=== PATIENT | male | born 1940 | race Two or more races ===

== ENCOUNTER 2017-05-16 13:30 | Inpatient (IN) | payer MEDICARE ==
[~2017-05-16] VITALS: Ht 162.6 cm; Wt 83.0 kg
[2017-05-16 15:06] VITALS: BP 126/65; PULSE 89; RESP 18
[2017-05-16 15:30] LABS: ADD UMIC YES; UR ASCORBIC ACID 40 mg/dL (NEGATIVE); UR BACTERIA FEW /HPF (NONE SEEN); UR BILIRUBIN (Dip) NEGATIVE (NEGATIVE); UR BLOOD (Dip) 2+ mg/dL (NEGATIVE); UR CLARITY CLEAR (CLEAR); UR COLOR YELLOW (YELLOW); UR GLUCOSE (Dip) NEGATIVE (NEGATIVE); UR KETONES (Dip) NEGATIVE (NEGATIVE); UR LEUKOCYTE ESTERASE (Dip) NEGATIVE Leu/ul (NEGATIVE); UR NITRITE (Dip) NEGATIVE (NEGATIVE); UR RBC 2 /HPF (0-5); UR TOTAL PROTEIN (Dip) NEGATIVE (NEGATIVE); UR UROBILINOGEN (Dip) NEGATIVE (NEGATIVE)
[2017-05-16] MEDS ORDERED: MAGNESIUM HYDROXIDE 30ML CUP PO PRN (16:00)
[2017-05-16] MEDS ORDERED: BISACODYL 10 MG SUPP PR PRN (16:00)
[2017-05-16] MEDS ORDERED: ACETAMINOPHEN 325 MG TAB PO PRN (16:00)
[2017-05-16] MEDS ORDERED: OXYCODONE/ACETAMINOPHEN (5/325) TAB PO PRN (16:00)
[2017-05-16] MEDS ORDERED: ALBUTEROL 0.083% (NEB) 2.5 MG/3 ML AMP INH PRN (16:00)
[2017-05-16] MEDS ORDERED: LACTULOSE 30ML CUP PO PRN (16:00)
[2017-05-16] MEDS ORDERED: IPRATROPIUM (NEB) 0.5 MG/2.5 ML AMP INH PRN (16:00)
[2017-05-16] MEDS ORDERED: VALSARTAN 160 MG TAB PO SCH (17:00)
[2017-05-16] MEDS: DORZOLAMIDE/TIMOLOL 10 ML OPH BOTH EYES SCH (17:00)
[2017-05-16 17:45] VITALS: Ht 162.6 cm; Wt 83.0 kg
[2017-05-16] MEDS: AMLODIPINE 2.5 MG TAB PO SCH (18:48)
[2017-05-16] MEDS: VALSARTAN 160 MG TAB PO SCH (18:51)
[2017-05-16] MEDS ORDERED: INFLUENZA VIRUS VACCINE 0.5 ML (DISPENSING) IM* ONE (19:30)
[2017-05-16 20:00] VITALS: BP 127/62; RESP 18
[2017-05-16] MEDS: LATANOPROST 0.005% 2.5 ML OPH BOTH EYES SCH (20:24)
[2017-05-16] MEDS: DOCUSATE SODIUM 100 MG CAP PO SCH (20:25)
[2017-05-16] MEDS: FAMOTIDINE 20 MG TAB PO SCH (20:25)
[2017-05-16] MEDS: ASPIRIN 325 MG TAB PO SCH (20:25)
[2017-05-16] MEDS: TAMSULOSIN (SR) 0.4 MG CAP PO SCH (20:26)
[2017-05-16] MEDS: SENNA TAB PO SCH (20:27)
[2017-05-17 02:00] VITALS: BP 125/65; RESP 18
--- NOTE | 2017-05-17 03:01 | HP ---
DATE OF ADMISSION: 05/16/2017 CHIEF COMPLAINT: Status post total left knee arthroplasty. HISTORY OF PRESENT ILLNESS: This is a 76-year-old male with a past medical history of coronary irasema ry disease, hypertension, who was admitted to an outside hospital and underwent total left knee arth roplasty by Dr. Diaz. The patient has had chronic left knee pain that has failed conservative thera py as he underwent elective surgery. Following the surgery, the patient became acutely overloaded i n CHF. He was treated medically with diuretic therapy. Patient was eventually stabilized. However , he had a significant decline in his premorbid state and as a result he was transferred to [facility] to acute rehab for continued care. Upon my evaluation of the patient at this time, he is currently stable. Denies any fevers, chills, nausea, vomiting. PAST MEDICAL HISTORY: History of hypertension, coronary artery disease, osteoarthritis, gout. PAST SURGICAL HISTORY: Status post hernia repair, appendectomy. FAMILY HISTORY: Noncontributory. SOCIAL HISTORY: Does not drink, smoke or do drugs. MEDICATIONS: Reviewed and reconciled. REVIEW OF SYSTEMS: A 14-point review of systems was conducted. Pertinent positives stated in HPI, otherwise negative. PHYSICAL EXAMINATION: VITAL SIGNS: Blood pressure is 126/65, respiration 18, pulse 89, temperature 98.4. HEENT: Head is normocephalic. NECK: Supple. HEART: Regular rate. LUNGS: Show diminished breath sounds at the base. ABDOMEN: Soft, nontender to palpation. No rebound or guarding. EXTREMITIES: Negative for clubbing, cyanosis, no edema on the right leg. Left leg has a dressing a nd brace that is clean, dry and intact. DERMATOLOGIC: No rashes. MUSCULOSKELETAL: No joint effusions. NEUROLOGIC: No focal deficits. MEDICATIONS: The patient's medications have been reviewed. LABORATORY DATA: Currently pending. ASSESSMENT AND PLAN: This is a 76-year-old male who presents with: 1. Status post total left knee arthroplasty. The plan is for patient to undergo physical therapy, occupational therapy, continue pain control. Continue deep venous thrombosis prophylaxis with aspir in. 2. Hypertension. Continue current blood pressure regimen, well controlled. 3. History of gout. Continue allopurinol. 4. Glaucoma. Continue eyedrops. 5. Pain syndrome. Continue current pain regimen. 6. Benign prostatic hypertrophy. Continue Flomax. 7. Status post heart failure. 8. Gastrointestinal and deep venous thrombosis prophylaxis. Continue Pepcid and aspirin. Please note I spent up to 25 minutes of face to face time with the patient and patient is FULL CODE. Dictated By: JUANITA ALDRIDGE DO NR/DAO Conf#: [id number] DID#: [id number] CC: LEELA ROSENTHAL DO; JUANITA ALDRIDGE DO;*EndCC*
[2017-05-17 06:59] LABS: BASOPHILS % 0.4 % (0.0-2.0); EOSINOPHILS # 0.3 10^3/ul (0.0-0.5); EOSINOPHILS % 2.7 % (0.0-7.0); HEMATOCRIT 34.5 % (42.0-52.0); HEMOGLOBIN 11.7 g/dl (14.0-18.0); LYMPHOCYTES # 1.3 10^3/ul (0.8-2.9); LYMPHOCYTES % 13.6 % (15.0-51.0); MEAN CORPUSCULAR HEMOGLOBIN 33.1 pg (29.0-33.0); MEAN CORPUSCULAR HGB CONC 33.9 g/dl (32.0-37.0); MEAN CORPUSCULAR VOLUME 97.7 fl (82.0-101.0); MONOCYTE # 1.3 10^3/ul (0.3-0.9); MONOCYTES % 13.7 % (0.0-11.0); NEUTROPHIL # 6.6 10^3/ul (1.6-7.5); NEUTROPHILS % 68.2 % (39.0-77.0); PLATELET COUNT 203 10^3/UL (140-415); RED BLOOD COUNT 3.53 10^6/ul (4.70-6.10); RED CELL DISTRIBUTION WIDTH 13.5 % (11.5-14.5); WHITE BLOOD COUNT 9.6 10^3/ul (4.8-10.8)
[2017-05-17 07:30] VITALS: BP 139/70; RESP 20
[2017-05-17 07:33] LABS: ALBUMIN/GLOBULIN RATIO 0.83; BILIRUBIN,INDIRECT 0.6 mg/dl (0-1.1); BILIRUBIN,TOTAL 0.6 mg/dl (0.2-1.3); CALCIUM 8.6 mg/dl (8.4-10.2); CREATININE 1.2 mg/dl (0.61-1.24); POTASSIUM 3.9 mmol/L (3.5-5.1); TOTAL PROTEIN 6.6 g/dl (6.1-8.1)
--- NOTE | 2017-05-17 08:48 | CONS ---
DATE OF ADMISSION: 05/16/2017 DATE OF CONSULTATION: 05/17/2017 TYPE OF CONSULTATION: Rehabilitation post-admission physician evaluation. REHABILITATION IMPAIRMENT CATEGORY: Debility secondary to postoperative acute on chronic diastolic failure. ACTIVE COMORBIDITIES: 1. Left total knee replacement. 2. Coronary artery disease. 3. Hypertension. 4. COPD. 5. Acute pain syndrome. 6. Impairments in self-care and mobility. HISTORY OF PRESENT ILLNESS: The patient is a pleasant 76-year-old gentleman who was admitted for a left total knee replacement. The patient's postoperative course was notable for acute on chronic diastolic failure. The patient was noted to have significant impairments in self-care and mobility as compared to baseline and the patient has been cleared to transfer to the rehabilitation unit for comprehensive interdisciplinary rehab care. FUNCTIONAL HISTORY: Prior to recent events, he was independent in self-care tasks and mobility. Currently, he requires minimal to moderate assist for self- care and mobility tasks. I have reviewed the preadmission screen and the patient's current functional status is consistent with the preadmission screen. SOCIAL HISTORY: The patient lives at home with family with a few steps at entryway and hopes to return there upon discharge. PAST MEDICAL HISTORY: 1. COPD. 2. Gout. 3. Osteoarthritis. 4. Hypertension. 5. Coronary artery disease. CURRENT MEDICATIONS: 1. Albuterol inhaler. 2. Amlodipine. 3. Catapres. 4. Atrovent inhaler. 5. Flomax. 6. Allopurinol. ALLERGIES: THE PATIENT WITH NO KNOWN DRUG ALLERGIES. PHYSICAL EXAMINATION: VITAL SIGNS: The patient is afebrile with stable vital signs. HEENT: Extraocular motion intact. Oropharynx clear. NECK: Supple. LUNGS: Clear anteriorly. CARDIAC: S1, S2. ABDOMEN: Soft, nontender, positive bowel sounds. NEUROLOGIC: He is awake and alert and oriented x3. He can follow simple 1- step commands. His cranial nerves appear grossly intact. He has good strength in bilateral upper extremity and the right lower extremity. Dorsiflexion and plantar flexion intact on the left. PLAN: The patient has been admitted for comprehensive interdisciplinary acute rehab and is anticipated to tolerate 5 out of 7 days a week, 3 hours of daily therapy in divided doses. The treatment plan will include: 1. Physical therapy to focus on bed mobility, transfers, and household ambulation with the goal of having the patient reach a standby assist level. 2. Occupational therapy to focus on hygiene, grooming, dressing, bathing, and toileting activities with the goal of having the patient reach standby assist level. 3. Rehabilitation nursing for carryover of therapeutic interventions, the goal of continent of bowel and bladder, and the goal of pain adequately managed on oral medications. ESTIMATED LENGTH OF STAY: seven days. DISPOSITION GOAL: Home. REHABILITATION BARRIER: Pain. INTERVENTION FOR BARRIER: Interdisciplinary approach. I acknowledge that I performed a full physical examination on this patient within 24 hours of admission to the rehabilitation unit. I believe the patient is a good candidate for comprehensive interdisciplinary rehab care and is anticipated to make reasonable goals in a reasonable period of time as outlined above. Dictated By: CHESTER MCDONALD/DAO Conf#: [id number] DID#: [id number] MTDD
[2017-05-17] MEDS: ALLOPURINOL 300 MG TAB PO SCH (09:00)
[2017-05-17] MEDS ORDERED: VALSARTAN 160 MG TAB PO SCH (09:00)
[2017-05-17] MEDS: ASPIRIN 325 MG TAB PO SCH ×2 (10:22→20:20)
[2017-05-17] MEDS: FAMOTIDINE 20 MG TAB PO SCH ×2 (10:22→20:20)
[2017-05-17] MEDS: DOCUSATE SODIUM 100 MG CAP PO SCH ×2 (10:22→20:20)
[2017-05-17] MEDS: CHOLECALCIFEROL 2,000 UNIT CAP PO SCH (10:22)
[2017-05-17] MEDS: DORZOLAMIDE/TIMOLOL 10 ML OPH BOTH EYES SCH ×2 (10:22→16:38)
--- NOTE | 2017-05-17 10:58 | CONS ---
Date/Time of Note Date/Time of Note DATE: 05/17/17 TIME: 10:57 Consult Date/Type/Reason Admit Date/Time May 16, 2017 at 14:15 Initial Consult Date Subjective no new c/o good uop on pt HEENT: Head is normocephalic. NECK: Supple. HEART: Regular rate. LUNGS: Show diminished breath sounds at the base. ABDOMEN: Soft, nontender to palpation. No rebound or guarding. EXTREMITIES: Negative for clubbing, cyanosis, no edema on the right leg. Left leg has a dressing and brace that is clean, dry and intact. DERMATOLOGIC: No rashes. MUSCULOSKELETAL: No joint effusions. NEUROLOGIC: No focal deficits. Objective Vital Signs Date Time Temp Pulse Resp B/P Pulse Ox O2 Delivery O2 Flow Rate FiO2 05/17/17 07:30 97.8 98 20 139/70 97 05/16/17 15:06 Room Air Intake and Output 05/16/17 05/16/17 05/17/17 15:00 23:00 07:00 Intake Total 650 ml Output Total 1100 ml Balance -450 ml Results/Medications Result Diagram: 05/17/17 0609 05/17/17 0609 Results 24 hrs Laboratory Tests Test 05/16/17 14:24 05/17/17 06:09 Urine Color YELLOW Urine Clarity CLEAR Urine pH 5.0 Urine Specific [place] 1.010 Urine Ketones NEGATIVE Urine Nitrite NEGATIVE Urine Bilirubin NEGATIVE Urine Urobilinogen NEGATIVE Urine Leukocyte Esterase NEGATIVE Urine Microscopic RBC 2 Urine Microscopic WBC 1 Urine Bacteria FEW A Urine Hemoglobin 2+ H Urine Glucose NEGATIVE Urine Total Protein NEGATIVE White Blood Count 9.6 Red Blood Count 3.53 L Hemoglobin 11.7 L Hematocrit 34.5 L Mean Corpuscular Volume 97.7 Mean Corpuscular Hemoglobin 33.1 H Mean Corpuscular Hemoglobin Concent 33.9 Red Cell Distribution Width 13.5 Platelet Count 203 Mean Platelet Volume 10.0 Neutrophils % 68.2 Lymphocytes % 13.6 L Monocytes % 13.7 H Eosinophils % 2.7 Basophils % 0.4 Nucleated Red Blood Cells % 0.0 Neutrophils # 6.6 Lymphocytes # 1.3 Monocytes # 1.3 H Eosinophils # 0.3 Basophils # 0.0 Nucleated Red Blood Cells # 0.0 Sodium Level 141 Potassium Level 3.9 Chloride Level 103 Carbon Dioxide Level 29 Anion Gap 13 Blood Urea Nitrogen 19 Creatinine 1.20 Glucose Level 117 Calcium Level 8.6 Total Bilirubin 0.6 Direct Bilirubin 0.00 Indirect Bilirubin 0.6 Aspartate Amino Transf (AST/SGOT) 26 Alanine Aminotransferase (ALT/SGPT) 33 Alkaline Phosphatase 61 Total Protein 6.6 Albumin 3.0 L Globulin 3.60 H Albumin/Globulin Ratio 0.83 Medications Current Medications Dorzolamide/ Timolol (Cosopt) 1 drop BID@, BOTH EYES Last administered on 05/17/17 10:22; Admin Dose 1 DROP; Start 05/16/17 at 17:00 Latanoprost (Xalatan) 1 drop HS BOTH EYES Last administered on 05/16/17 20:24 ; Admin Dose 1 DROP; Start 05/16/17 at 21:00 Docusate Sodium (Colace) 100 mg BID PO Last administered on 05/17/17 10:22; Admin Dose 100 MG; Start 05/16/17 at 21:00 Senna (Senokot) 1 tab HS PO ; Start 05/16/17 at 21:00 Acetaminophen (Tylenol Tab) 650 mg Q4H PRN PO PAIN; Start 05/16/17 at 16:00 Bisacodyl (Dulcolax Supp) 10 mg DAILY PRN [place] CONSTIPATION; Start 05/16/17 at 16 :00 Magnesium Hydroxide (Milk Of Mag) 30 ml BID PRN PO CONSTIPATION; Start at 16:00 Lactulose (Enulose) 20 gm DAILY PRN PO CONSTIPATION; Start 05/16/17 at 16:00 Amlodipine Besylate (Norvasc) 2.5 mg DAILY@17 PO Last administered on 18:48; Admin Dose 2.5 MG; Start 05/16/17 at 17:00 Aspirin (Aspirin) 325 mg BID PO Last administered on 05/17/17 10:22; Admin Dose 325 MG; Start 05/16/17 at 21:00 Cholecalciferol (Vitamin D) 2,000 unit DAILY PO Last administered on 05/17/17 10:22; Admin Dose 2,000 UNIT; Start 05/17/17 at 09:00 Clonidine (Catapres) 0.1 mg Q8H PRN PO SBP GREATER THAN 170; Start 05/16/17 at 16:00 Tamsulosin HCl (Flomax) 0.4 mg DAILY@21 PO ; Start 05/16/17 at 21:00 Allopurinol (Zyloprim) 300 mg DAILY PO ; Start 05/17/17 at 09:00 Oxycodone/ Acetaminophen (Percocet (5/ 325)) 1 tab QID PRN PO PAIN; Start 05/16 at 16:00 Valsartan (Diovan) 320 mg DAILY@17 PO Last administered on 05/16/17 18:51; Admin Dose 320 MG; Start 05/16/17 at 17:00 Famotidine (Pepcid) 20 mg BID PO Last administered on 05/17/17t 10:22; Admin Dose 20 MG; Start 05/16/17 at 21:00 Assessment/Plan Chief Complaint/Hosp Course 1. Status post total left knee arthroplasty. The plan is for patient to undergo physical therapy, occupational therapy, continue pain control. Continue deep venous thrombosis prophylaxis with aspirin. 2. Hypertension. Continue current blood pressure regimen, well controlled. 3. History of gout. Continue allopurinol. 4. Glaucoma. Continue eyedrops. 5. Pain syndrome. Continue current pain regimen. 6. Benign prostatic hypertrophy. Continue Flomax. 7. Status post heart failure. 8. Gastrointestinal and deep venous thrombosis prophylaxis. Continue Pepcid and aspirin. Problems: JAY HAYES MD May 17, 2017 10:58
[2017-05-17 14:00] VITALS: BP 130/71; RESP 18
[2017-05-17] MEDS: VALSARTAN 160 MG TAB PO SCH (16:37)
[2017-05-17] MEDS: AMLODIPINE 2.5 MG TAB PO SCH (16:37)
[2017-05-17 20:00] VITALS: BP 121/65; RESP 18
[2017-05-17] MEDS: LATANOPROST 0.005% 2.5 ML OPH BOTH EYES SCH (20:20)
[2017-05-17] MEDS: SENNA TAB PO SCH (20:25)
[2017-05-17] MEDS: TAMSULOSIN (SR) 0.4 MG CAP PO SCH (20:25)
[2017-05-18 02:00] VITALS: BP 126/67; RESP 18
[2017-05-18 07:00] VITALS: BP 131/78; RESP 18
[2017-05-18] MEDS: ALLOPURINOL 300 MG TAB PO SCH (09:00)
[2017-05-18] MEDS: DORZOLAMIDE/TIMOLOL 10 ML OPH BOTH EYES SCH ×2 (09:20→17:27)
[2017-05-18] MEDS: ASPIRIN 325 MG TAB PO SCH ×2 (09:20→21:06)
[2017-05-18] MEDS: CHOLECALCIFEROL 2,000 UNIT CAP PO SCH (09:23)
[2017-05-18] MEDS: FAMOTIDINE 20 MG TAB PO SCH ×2 (09:23→21:06)
[2017-05-18] MEDS: DOCUSATE SODIUM 100 MG CAP PO SCH ×2 (09:23→21:06)
--- NOTE | 2017-05-18 09:37 | CONS ---
Date/Time of Note Date/Time of Note DATE: 05/18/17 TIME: 09:37 Consult Date/Type/Reason Admit Date/Time May 16, 2017 at 14:15 Subjective no new events good uop on PT Objective Vital Signs Date Time Temp Pulse Resp B/P Pulse Ox O2 Delivery O2 Flow Rate FiO2 05/18/17 02:00 98.3 82 18 126/67 95 05/16/17 15:06 Room Air Intake and Output 05/17/17 05/17/17 05/18/17 15:00 23:00 07:00 Intake Total 750 ml 1300 ml 1050 ml Output Total 840 ml 350 ml Balance 750 ml 460 ml 700 ml Exam EENT: Extraocular motion intact. Oropharynx clear. NECK: Supple. LUNGS: Clear anteriorly. CARDIAC: S1, S2. ABDOMEN: Soft, nontender, positive bowel sounds. Results/Medications Result Diagram: 05/17/17 0609 05/17/17 0609 Medications Current Medications Dorzolamide/ Timolol (Cosopt) 1 drop BID@ BOTH EYES Last administered on 05/18/17 09:20; Admin Dose 1 DROP; Start 05/16/17 at 17:00 Latanoprost (Xalatan) 1 drop HS BOTH EYES Last administered on 05/17/17 20:20 ; Admin Dose 1 DROP; Start 05/16/17 at 21:00 Docusate Sodium (Colace) 100 mg BID PO Last administered on 05/18/17 09:23; Admin Dose 100 MG; Start 05/16/17 at 21:00 Senna (Senokot) 1 tab HS PO ; Start 05/16/17 at 21:00 Acetaminophen (Tylenol Tab) 650 mg Q4H PRN PO PAIN; Start 05/16/17 at 16:00 Bisacodyl (Dulcolax Supp) 10 mg DAILY PRN [place] CONSTIPATION; Start 05/16/17 at 16 :00 Magnesium Hydroxide (Milk Of Mag) 30 ml BID PRN PO CONSTIPATION; Start at 16:00 Lactulose (Enulose) 20 gm DAILY PRN PO CONSTIPATION; Start 05/16/17 at 16:00 Amlodipine Besylate (Norvasc) 2.5 mg DAILY@17 PO Last administered on 16:37; Admin Dose 2.5 MG; Start 05/16/17 at 17:00 Aspirin (Aspirin) 325 mg BID PO Last administered on 05/18/17 09:20; Admin Dose 325 MG; Start 05/16/17 at 21:00 Cholecalciferol (Vitamin D) 2,000 unit DAILY PO Last administered on 09:23; Admin Dose 2,000 UNIT; Start 05/17/17 at 09:00 Clonidine (Catapres) 0.1 mg Q8H PRN PO SBP GREATER THAN 170; Start 05/16/17 at 16:00 Tamsulosin HCl (Flomax) 0.4 mg DAILY@21 PO ; Start 05/16/17 at 21:00 Allopurinol (Zyloprim) 300 mg DAILY PO ; Start 05/17/17 at 09:00 Oxycodone/ Acetaminophen (Percocet (5/ 325)) 1 tab QID PRN PO PAIN; Start 05/16 at 16:00 Valsartan (Diovan) 320 mg DAILY@17 PO Last administered on 05/17/17 16:37; Admin Dose 320 MG; Start 05/16/17 at 17:00 Famotidine (Pepcid) 20 mg BID PO Last administered on 05/18/17 09:23; Admin Dose 20 MG; Start 05/16/17 at 21:00 Assessment/Plan Chief Complaint/Hosp Course 1. Status post total left knee arthroplasty. The plan is for patient to undergo physical therapy, occupational therapy, continue pain control. Continue deep venous thrombosis prophylaxis with aspirin. 2. Hypertension. Continue current blood pressure regimen, well controlled. 3. History of gout. Continue allopurinol. 4. Glaucoma. Continue eyedrops. 5. Pain syndrome. Continue current pain regimen. 6. Benign prostatic hypertrophy. Continue Flomax. 7. Status post heart failure. 8. Gastrointestinal and deep venous thrombosis prophylaxis. Continue Pepcid and aspirin. Problems: JAY HAYES MD May 18, 2017 09:37
[2017-05-18 15:24] VITALS: BP 118/55; RESP 18
[2017-05-18] MEDS: VALSARTAN 160 MG TAB PO SCH (17:27)
[2017-05-18] MEDS: AMLODIPINE 2.5 MG TAB PO SCH (17:28)
[2017-05-18 20:00] VITALS: BP 125/64; RESP 18
[2017-05-18] MEDS: SENNA TAB PO SCH (21:00)
[2017-05-18] MEDS: TAMSULOSIN (SR) 0.4 MG CAP PO SCH (21:00)
[2017-05-18] MEDS: LATANOPROST 0.005% 2.5 ML OPH BOTH EYES SCH (21:06)
[2017-05-19 02:00] VITALS: BP 124/63; RESP 18
[2017-05-19 07:00] VITALS: BP 119/61; RESP 18
[2017-05-19] MEDS: DOCUSATE SODIUM 100 MG CAP PO SCH ×2 (08:36→21:06)
[2017-05-19] MEDS: DORZOLAMIDE/TIMOLOL 10 ML OPH BOTH EYES SCH ×2 (08:36→17:05)
[2017-05-19] MEDS: FAMOTIDINE 20 MG TAB PO SCH ×2 (08:36→21:06)
[2017-05-19] MEDS: ASPIRIN 325 MG TAB PO SCH ×2 (08:36→21:05)
[2017-05-19] MEDS: CHOLECALCIFEROL 2,000 UNIT CAP PO SCH (08:36)
[2017-05-19] MEDS: ALLOPURINOL 300 MG TAB PO SCH (08:37)
--- NOTE | 2017-05-19 11:28 | PN ---
DATE: 05/19/2017 SUBJECTIVE: The patient is stable. No events overnight. OBJECTIVE: VITAL SIGNS: Blood pressure is 119/61, pulse 100, respiration 18, temperature 97.6. HEENT: Head is normocephalic. NECK: Supple. HEART: Regular rate. LUNGS: Show diminished breath sounds at base. ABDOMEN: Soft, nontender to palpation. No rebound or guarding. EXTREMITIES: Negative for clubbing, cyanosis, edema. DERMATOLOGIC: No rashes. MUSCULOSKELETAL: No joint effusions. NEUROLOGIC: No change in exam. MEDICATIONS: The patient's medications have been reviewed. LABORATORY DATA: Reviewed. No new labs. ASSESSMENT AND PLAN: 1. Status post left knee arthroplasty. The patient is currently stable. Continue physical therapy and occupational therapy, continue pain control. 2. Hypertension. Continue current blood pressure regimen. 3. History of gout. Continue allopurinol. 4. Glaucoma. Continue current eyedrops. 5. Chronic pain syndrome. Continue current pain regimen. 6. Benign prostatic hypertrophy. Continue Flomax. 7. Status post heart failure. 8. Gastrointestinal and deep venous thrombosis prophylaxis. Continue Pepcid and aspirin. Dictated By: JUANITA FLEMING/DAO Conf#: [id number] DID#: [id number]
--- NOTE | 2017-05-19 11:47 | CONS ---
Date/Time of Note Date/Time of Note DATE: 05/19/17 TIME: 11:47 Consult Date/Type/Reason Admit Date/Time May 16, 2017 at 14:15 Initial Consult Date Objective Vital Signs Date Time Temp Pulse Resp B/P Pulse Ox O2 Delivery O2 Flow Rate FiO2 05/19/17 07:00 97.6 100 18 119/61 96 05/16/17 15:06 Room Air Intake and Output 05/18/17 05/18/17 05/19/17 15:00 23:00 07:00 Intake Total 3200 ml 520 ml Output Total 1200 ml 2000 ml Balance 2000 ml -1480 ml INTERDISCIPLINARY TEAM CONFERENCE BOWEL- Cont BLADDER-Cont SKIN- intact OT- DRESSING-min BATHING-min TOILETING-min PT- BED MOBILITY-min TRANSFERS-min AMBULATION-min 75 feet A/P- Interdisciplinary team conference held today. Please see interdisciplinary sheet. Working toward d.c. on 05/23 with post discharge follow up of physical therapy, occupational therapy. Results/Medications Result Diagram: 05/17/17 0609 05/17/17 0609 Medications Current Medications Dorzolamide/ Timolol (Cosopt) 1 drop BID@ BOTH EYES Last administered on 05/19/17 08:36; Admin Dose 1 DROP; Start 05/16/17 at 17:00 Latanoprost (Xalatan) 1 drop HS BOTH EYES Last administered on 05/18/17 21:06 ; Admin Dose 1 DROP; Start 05/16/17 at 21:00 Docusate Sodium (Colace) 100 mg BID PO Last administered on 05/19/17 08:36; Admin Dose 100 MG; Start 05/16/17 at 21:00 Senna (Senokot) 1 tab HS PO ; Start 05/16/17 at 21:00 Acetaminophen (Tylenol Tab) 650 mg Q4H PRN PO PAIN; Start 05/16/17 at 16:00 Bisacodyl (Dulcolax Supp) 10 mg DAILY PRN [place] CONSTIPATION; Start 05/16/17 at 16 :00 Magnesium Hydroxide (Milk Of Mag) 30 ml BID PRN PO CONSTIPATION; Start at 16:00 Lactulose (Enulose) 20 gm DAILY PRN PO CONSTIPATION; Start 05/16/17 at 16:00 Amlodipine Besylate (Norvasc) 2.5 mg DAILY@17 PO Last administered on 17:28; Admin Dose 2.5 MG; Start 05/16/17 at 17:00 Aspirin (Aspirin) 325 mg BID PO Last administered on 05/19/17 08:36; Admin Dose 325 MG; Start 05/16/17 at 21:00 Cholecalciferol (Vitamin D) 2,000 unit DAILY PO Last administered on 08:36; Admin Dose 2,000 UNIT; Start 05/17/17 at 09:00 Clonidine (Catapres) 0.1 mg Q8H PRN PO SBP GREATER THAN 170; Start 05/16/17 at 16:00 Tamsulosin HCl (Flomax) 0.4 mg DAILY@21 PO ; Start 05/16/17 at 21:00 Allopurinol (Zyloprim) 300 mg DAILY PO ; Start 05/17/17 at 09:00 Oxycodone/ Acetaminophen (Percocet (5/ 325)) 1 tab QID PRN PO PAIN; Start 05/16 at 16:00 Valsartan (Diovan) 320 mg DAILY@17 PO Last administered on 05/18/17 17:27; Admin Dose 320 MG; Start 05/16/17 at 17:00 Famotidine (Pepcid) 20 mg BID PO Last administered on 05/19/17 08:36; Admin Dose 20 MG; Start 05/16/17 at 21:00 CHESTER GARZA MD May 19, 2017 11:47
[2017-05-19 14:00] VITALS: BP 111/66; RESP 18
[2017-05-19] MEDS: AMLODIPINE 2.5 MG TAB PO SCH (17:05)
[2017-05-19] MEDS: VALSARTAN 160 MG TAB PO SCH (17:05)
[2017-05-19 20:00] VITALS: BP 108/53; RESP 18
[2017-05-19] MEDS: SENNA TAB PO SCH (21:00)
[2017-05-19] MEDS: TAMSULOSIN (SR) 0.4 MG CAP PO SCH (21:00)
[2017-05-19] MEDS: LATANOPROST 0.005% 2.5 ML OPH BOTH EYES SCH (21:05)
[2017-05-20 02:00] VITALS: BP 114/65; RESP 18
[2017-05-20 07:30] VITALS: BP 116/66; RESP 20
[2017-05-20] MEDS: CHOLECALCIFEROL 2,000 UNIT CAP PO SCH (08:42)
[2017-05-20] MEDS: DOCUSATE SODIUM 100 MG CAP PO SCH ×2 (08:43→20:20)
[2017-05-20] MEDS: ASPIRIN 325 MG TAB PO SCH ×2 (08:43→20:20)
[2017-05-20] MEDS: DORZOLAMIDE/TIMOLOL 10 ML OPH BOTH EYES SCH ×2 (08:43→18:18)
[2017-05-20] MEDS: FAMOTIDINE 20 MG TAB PO SCH ×2 (08:43→20:20)
[2017-05-20] MEDS: ALLOPURINOL 300 MG TAB PO SCH (08:44)
--- NOTE | 2017-05-20 09:59 | CONS ---
Date/Time of Note Date/Time of Note DATE: 05/20/17 TIME: 09:58 Consult Date/Type/Reason Admit Date/Time May 16, 2017 at 14:15 Subjective "I feel great" Objective min assist ambulation Vital Signs Date Time Temp Pulse Resp B/P Pulse Ox O2 Delivery O2 Flow Rate FiO2 05/20/17 02:00 98.0 88 18 114/65 96 05/16/17 15:06 Room Air Intake and Output 05/19/17 05/19/17 05/20/17 15:00 23:00 07:00 Intake Total 200 ml 300 ml Output Total 1400 ml 1500 ml Balance -1200 ml -1200 ml Results/Medications Result Diagram: 05/17/17 0609 05/17/17 0609 Medications Current Medications Dorzolamide/ Timolol (Cosopt) 1 drop BID@ BOTH EYES Last administered on 05/20/17 08:43; Admin Dose 1 DROP; Start 05/16/17 at 17:00 Latanoprost (Xalatan) 1 drop HS BOTH EYES Last administered on 05/19/17 21:05 ; Admin Dose 1 DROP; Start 05/16/17 at 21:00 Docusate Sodium (Colace) 100 mg BID PO Last administered on 05/20/17 08:43; Admin Dose 100 MG; Start 05/16/17 at 21:00 Senna (Senokot) 1 tab HS PO ; Start 05/16/17 at 21:00 Acetaminophen (Tylenol Tab) 650 mg Q4H PRN PO PAIN; Start 05/16/17 at 16:00 Bisacodyl (Dulcolax Supp) 10 mg DAILY PRN [place] CONSTIPATION; Start 05/16/17 at 16 :00 Magnesium Hydroxide (Milk Of Mag) 30 ml BID PRN PO CONSTIPATION; Start at 16:00 Lactulose (Enulose) 20 gm DAILY PRN PO CONSTIPATION; Start 05/16/17 at 16:00 Amlodipine Besylate (Norvasc) 2.5 mg DAILY@17 PO Last administered on 17:05; Admin Dose 2.5 MG; Start 05/16/17 at 17:00 Aspirin (Aspirin) 325 mg BID PO Last administered on 05/20/17 08:43; Admin Dose 325 MG; Start 05/16/17 at 21:00 Cholecalciferol (Vitamin D) 2,000 unit DAILY PO Last administered on 08:42; Admin Dose 2,000 UNIT; Start 05/17/17 at 09:00 Clonidine (Catapres) 0.1 mg Q8H PRN PO SBP GREATER THAN 170; Start 05/16/17 at 16:00 Tamsulosin HCl (Flomax) 0.4 mg DAILY@21 PO ; Start 05/16/17 at 21:00 Allopurinol (Zyloprim) 300 mg DAILY PO ; Start 05/17/17 at 09:00 Oxycodone/ Acetaminophen (Percocet (5/ 325)) 1 tab QID PRN PO PAIN Last administered on 05/19/17 17:05; Admin Dose 1 TAB; Start 05/16/17 at 16:00 Valsartan (Diovan) 320 mg DAILY@17 PO Last administered on 05/19/17 17:05; Admin Dose 320 MG; Start 05/16/17 at 17:00 Famotidine (Pepcid) 20 mg BID PO Last administered on 05/20/17 08:43; Admin Dose 20 MG; Start 05/16/17 at 21:00 Assessment/Plan Additional Assessment/Plan Rehab- Debility secondary to postoperative acute on chronic diastolic failure; Left total knee replacement. Patient making progress with current treatment plan, working towards home at end of week Coronary artery disease. Hypertension. COPD. Acute pain syndrome- improving. CHESTER GARZA MD May 20, 2017 09:59
[2017-05-20 14:00] VITALS: BP 104/58; RESP 18
[2017-05-20] MEDS: VALSARTAN 160 MG TAB PO SCH (18:18)
[2017-05-20] MEDS: AMLODIPINE 2.5 MG TAB PO SCH (18:18)
[2017-05-20 20:00] VITALS: BP 102/61; RESP 18
[2017-05-20] MEDS: LATANOPROST 0.005% 2.5 ML OPH BOTH EYES SCH (20:20)
[2017-05-20] MEDS: TAMSULOSIN (SR) 0.4 MG CAP PO SCH (20:23)
[2017-05-20] MEDS: SENNA TAB PO SCH (20:24)
[2017-05-21 02:00] VITALS: BP 118/59; RESP 18
--- NOTE | 2017-05-21 06:34 | PN ---
DATE: 05/20/2017 SUBJECTIVE: The patient is stable. No events overnight. OBJECTIVE: VITAL SIGNS: Blood pressure is 119/61, pulse 100, respirations 18, temperature 98.0. HEENT: Head is normocephalic. NECK: Supple. HEART: Regular rate. LUNGS: Show diminished breath sounds at the base. ABDOMEN: Soft, nontender to palpation without rebound or guarding. EXTREMITIES: Negative for clubbing, cyanosis. No edema noted. Dressing on patient's left knee. DERMATOLOGIC: No rashes. MUSCULOSKELETAL: No joint effusions. MEDICATIONS: The patient's medications have been reviewed. LABORATORY DATA: Has been reviewed. No new labs. ASSESSMENT AND PLAN: 1. Status post left knee arthroplasty. The patient is currently stable. Continue physical therapy . 2. Hypertension. Continue current blood pressure regimen. 3. History of gout. Continue allopurinol. 4. Glaucoma. Continue eyedrops. 5. Chronic pain syndrome. Continue current pain regimen. 6. Benign prostatic hypertrophy. Continue Flomax. 7. Status post heart failure. 8. Gastrointestinal and deep venous thrombosis prophylaxis. Continue Pepcid and aspirin. Dictated By: JUANITA ALDRIDGE DO NR/NTS Conf#: [id number] DID#: [id number] CC: LEELA ROSENTHAL DO; CHESTER GARZA MD;*End*
[2017-05-21 08:00] VITALS: BP 110/60; RESP 19
[2017-05-21] MEDS: ALLOPURINOL 300 MG TAB PO SCH (09:00)
[2017-05-21] MEDS: DOCUSATE SODIUM 100 MG CAP PO SCH ×2 (09:10→20:24)
[2017-05-21] MEDS: CHOLECALCIFEROL 2,000 UNIT CAP PO SCH (09:10)
[2017-05-21] MEDS: FAMOTIDINE 20 MG TAB PO SCH ×2 (09:10→20:24)
[2017-05-21] MEDS: ASPIRIN 325 MG TAB PO SCH ×2 (09:10→20:24)
[2017-05-21] MEDS: DORZOLAMIDE/TIMOLOL 10 ML OPH BOTH EYES SCH ×2 (09:11→17:48)
--- NOTE | 2017-05-21 11:52 | PN ---
DATE: 05/21/2017 SUBJECTIVE: The patient is stable. No events overnight. OBJECTIVE: VITAL SIGNS: Blood pressure is 119/59, pulse 103, respirations 20, temperature 98.4. HEENT: Head is normocephalic. NECK: Supple. HEART: Regular rate. LUNGS: Show diminished breath sounds at base. ABDOMEN: Soft, nontender to palpation without rebound or guarding. EXTREMITIES: Negative for clubbing, cyanosis, no edema. Patient has a dressing over his left knee clean, dry and intact. DERMATOLOGIC: No rashes. MUSCULOSKELETAL: No joint effusions. NEUROLOGIC: No change in exam. MEDICATIONS: The patient's medications have been reviewed. LABORATORY DATA: Has been reviewed. ASSESSMENT AND PLAN: 1. Status post left knee arthroplasty. The patient is currently stable. Continue physical therapy . 2. Hypertension. Continue current blood pressure regimen. 3. History of gout. Continue allopurinol. 4. Glaucoma. Continue current eyedrops. 5. Chronic pain syndrome. Continue current pain regimen. 6. Benign prostatic hypertrophy. Continue Flomax. 7. Status post heart failure. 8. Gastrointestinal and deep venous thrombosis prophylaxis. Dictated By: JUANITA ALDRIDGE DO NR/NTS Conf#: [id number] DID#: [id number] CC: CHESTER GARZA MD;*End*
--- NOTE | 2017-05-21 13:43 | CONS ---
Date/Time of Note Date/Time of Note DATE: 05/21/17 TIME: 13:42 Consult Date/Type/Reason Admit Date/Time May 16, 2017 at 14:15 Subjective Patient motivated and in good spirits Objective sba ambulation with PT Vital Signs Date Time Temp Pulse Resp B/P Pulse Ox O2 Delivery O2 Flow Rate FiO2 05/21/17 08:00 97.6 99 19 110/60 96 Intake and Output 05/20/17 05/20/17 05/21/17 14:59 22:59 06:59 Intake Total 500 ml 1400 ml 300 ml Output Total 300 ml 680 ml 1600 ml Balance 200 ml 720 ml -1300 ml Results/Medications Result Diagram: 05/17/17 0609 05/17/17 0609 Medications Current Medications Dorzolamide/ Timolol (Cosopt) 1 drop BID@ BOTH EYES Last administered on 05/21/17 09:11; Admin Dose 1 DROP; Start 05/16/17 at 17:00 Latanoprost (Xalatan) 1 drop HS BOTH EYES Last administered on 05/20/17 20:20 ; Admin Dose 1 DROP; Start 05/16/17 at 21:00 Docusate Sodium (Colace) 100 mg BID PO Last administered on 05/21/17 09:10; Admin Dose 100 MG; Start 05/16/17 at 21:00 Senna (Senokot) 1 tab HS PO ; Start 05/16/17 at 21:00 Acetaminophen (Tylenol Tab) 650 mg Q4H PRN PO PAIN; Start 05/16/17 at 16:00 Bisacodyl (Dulcolax Supp) 10 mg DAILY PRN [place] CONSTIPATION; Start 05/16/17 at 16 :00 Magnesium Hydroxide (Milk Of Mag) 30 ml BID PRN PO CONSTIPATION; Start at 16:00 Lactulose (Enulose) 20 gm DAILY PRN PO CONSTIPATION; Start 05/16/17 at 16:00 Amlodipine Besylate (Norvasc) 2.5 mg DAILY@17 PO Last administered on 18:18; Admin Dose 2.5 MG; Start 05/16/17 at 17:00 Aspirin (Aspirin) 325 mg BID PO Last administered on 05/21/17 09:10; Admin Dose 325 MG; Start 12/8/17 at 21:00 Cholecalciferol (Vitamin D) 2,000 unit DAILY PO Last administered on 09:10; Admin Dose 2,000 UNIT; Start 05/17/17 at 09:00 Clonidine (Catapres) 0.1 mg Q8H PRN PO SBP GREATER THAN 170; Start 05/16/17 at 16:00 Tamsulosin HCl (Flomax) 0.4 mg DAILY@21 PO ; Start 05/16/17 at 21:00 Allopurinol (Zyloprim) 300 mg DAILY PO ; Start 05/17/17 at 09:00 Oxycodone/ Acetaminophen (Percocet (5/ 325)) 1 tab QID PRN PO PAIN Last administered on 05/19/17 17:05; Admin Dose 1 TAB; Start 05/16/17 at 16:00 Valsartan (Diovan) 320 mg DAILY@17 PO Last administered on 05/20/17 18:18; Admin Dose 320 MG; Start 05/16/17 at 17:00 Famotidine (Pepcid) 20 mg BID PO Last administered on 05/21/17 09:10; Admin Dose 20 MG; Start 05/16/17 at 21:00 Assessment/Plan Additional Assessment/Plan Rehab- Debility secondary to postoperative acute on chronic diastolic failure; Left total knee replacement. Great progress, anticipate dc Friday Coronary artery disease. Hypertension. COPD. CHESTER GARZA MD May 21, 2017 13:43
[2017-05-21] MEDS: AMLODIPINE 2.5 MG TAB PO SCH (17:47)
[2017-05-21] MEDS: VALSARTAN 160 MG TAB PO SCH (17:47)
[2017-05-21] MEDS: SENNA TAB PO SCH (20:24)
[2017-05-21] MEDS: LATANOPROST 0.005% 2.5 ML OPH BOTH EYES SCH (20:24)
[2017-05-21] MEDS: TAMSULOSIN (SR) 0.4 MG CAP PO SCH (20:37)
[2017-05-22 02:04] VITALS: BP 118/65; RESP 18
[2017-05-22 07:30] VITALS: BP 107/59; RESP 20
[2017-05-22] MEDS: ASPIRIN 325 MG TAB PO SCH ×2 (09:17→21:02)
[2017-05-22] MEDS: DOCUSATE SODIUM 100 MG CAP PO SCH ×2 (09:17→21:03)
[2017-05-22] MEDS: FAMOTIDINE 20 MG TAB PO SCH ×2 (09:17→21:03)
[2017-05-22] MEDS: DORZOLAMIDE/TIMOLOL 10 ML OPH BOTH EYES SCH ×2 (09:17→17:39)
[2017-05-22] MEDS: CHOLECALCIFEROL 2,000 UNIT CAP PO SCH (09:17)
[2017-05-22] MEDS: ALLOPURINOL 300 MG TAB PO SCH (09:17)
--- NOTE | 2017-05-22 10:34 | CONS ---
Date/Time of Note Date/Time of Note DATE: 05/22/17 TIME: 10:34 Consult Date/Type/Reason Admit Date/Time May 16, 2017 at 14:15 Subjective Motivated Objective supervised ambulation 150 feet Vital Signs Date Time Temp Pulse Resp B/P Pulse Ox O2 Delivery O2 Flow Rate FiO2 05/22/17 07:30 97.5 103 20 107/59 96 Intake and Output 05/21/17 05/21/17 05/22/17 15:00 23:00 07:00 Intake Total 1050 ml Output Total 350 ml Balance 700 ml Results/Medications Medications Current Medications Dorzolamide/ Timolol (Cosopt) 1 drop BID@ BOTH EYES Last administered on 05/22/17 09:17; Admin Dose 1 DROP; Start 05/16/17 at 17:00 Latanoprost (Xalatan) 1 drop HS BOTH EYES Last administered on 05/21/17 20:24 ; Admin Dose 1 DROP; Start 05/16/17 at 21:00 Docusate Sodium (Colace) 100 mg BID PO Last administered on 05/22/17 09:17; Admin Dose 100 MG; Start 05/16/17 at 21:00 Senna (Senokot) 1 tab HS PO Last administered on 05/21/17 20:24; Admin Dose 1 TAB; Start 05/16/17 at 21:00 Acetaminophen (Tylenol Tab) 650 mg Q4H PRN PO PAIN; Start 05/16/17 at 16:00 Bisacodyl (Dulcolax Supp) 10 mg DAILY PRN [place] CONSTIPATION; Start 05/16/17 at 16 :00 Magnesium Hydroxide (Milk Of Mag) 30 ml BID PRN PO CONSTIPATION; Start at 16:00 Lactulose (Enulose) 20 gm DAILY PRN PO CONSTIPATION; Start 05/16/17 at 16:00 Amlodipine Besylate (Norvasc) 2.5 mg DAILY@17 PO Last administered on 17:47; Admin Dose 2.5 MG; Start 05/16/17 at 17:00 Aspirin (Aspirin) 325 mg BID PO Last administered on 05/22/17 09:17; Admin Dose 325 MG; Start 05/16/17 at 21:00 Cholecalciferol (Vitamin D) 2,000 unit DAILY PO Last administered on 09:17; Admin Dose 2,000 UNIT; Start 05/17/17 at 09:00 Clonidine (Catapres) 0.1 mg Q8H PRN PO SBP GREATER THAN 170; Start 05/16/17 at 16:00 Tamsulosin HCl (Flomax) 0.4 mg DAILY@21 PO ; Start 05/16/17 at 21:00 Allopurinol (Zyloprim) 300 mg DAILY PO Last administered on 05/22/17 09:17; Admin Dose 300 MG; Start 05/17/17 at 09:00 Oxycodone/ Acetaminophen (Percocet (5/ 325)) 1 tab QID PRN PO PAIN Last administered on 05/19/17 17:05; Admin Dose 1 TAB; Start 05/16/17 at 16:00 Valsartan (Diovan) 320 mg DAILY@17 PO Last administered on 05/21/17 17:47; Admin Dose 320 MG; Start 05/16/17 at 17:00 Famotidine (Pepcid) 20 mg BID PO Last administered on 05/22/17 09:17; Admin Dose 20 MG; Start 05/16/17 at 21:00 Assessment/Plan Additional Assessment/Plan Rehab- Debiltiy due to post op chf; Left TKR Excellent progress. Anticipate dc Friday Pain- under good control HTN COPD Gout CHESTER GARZA MD May 22, 2017 10:34
[2017-05-22 14:00] VITALS: BP 123/57; RESP 20
--- NOTE | 2017-05-22 16:55 | PN ---
DATE: 05/22/2017 SUBJECTIVE: The patient is stable. No events overnight. No fevers, chills, nausea, vomiting. OBJECTIVE: VITAL SIGNS: Blood pressure is 107/59, pulse 103, respirations 20, temperature 97.5. HEENT: Head is normocephalic. NECK: Supple. HEART: Regular rate. LUNGS: Show diminished breath sounds at base. ABDOMEN: Soft, nontender to palpation. No rebound or guarding. EXTREMITIES: Negative for clubbing, cyanosis, no edema. The patient has dressing over his left kne e. It is clean, dry and intact. DERMATOLOGIC: No rashes. MUSCULOSKELETAL: No joint effusions. NEUROLOGIC: No change in exam. MEDICATIONS: Have been reviewed. LABORATORY DATA: Has been reviewed. No new labs. ASSESSMENT AND PLAN: 1. Status post left knee arthroplasty. The patient is currently stable. Continue physical therapy . 2. Hypertension. Continue current blood pressure regimen. 3. History of gout. Continue allopurinol. 4. Glaucoma. Continue current eyedrops. 5. Chronic pain syndrome. Continue current pain regimen. 6. Benign prostatic hypertrophy. Continue Flomax. 7. Status post heart failure. 8. Gastrointestinal and deep venous thrombosis prophylaxis. Dictated By: JUANITA ALDRIDGE DO NR/NTS Conf#: [id number] DID#: [id number] CC: CHESTER GARZA MD;*End*
[2017-05-22] MEDS: VALSARTAN 160 MG TAB PO SCH (17:39)
[2017-05-22] MEDS: AMLODIPINE 2.5 MG TAB PO SCH (17:39)
[2017-05-22 20:00] VITALS: BP 124/63; RESP 18
[2017-05-22] MEDS: TAMSULOSIN (SR) 0.4 MG CAP PO SCH (21:00)
[2017-05-22] MEDS: SENNA TAB PO SCH (21:00)
[2017-05-22] MEDS: LATANOPROST 0.005% 2.5 ML OPH BOTH EYES SCH (21:09)
[2017-05-23 02:00] VITALS: BP 120/60; RESP 18
[2017-05-23 07:30] VITALS: BP 132/70; RESP 18
[2017-05-23] MEDS: ASPIRIN 325 MG TAB PO SCH (08:56)
[2017-05-23] MEDS: ALLOPURINOL 300 MG TAB PO SCH (08:56)
[2017-05-23] MEDS: DOCUSATE SODIUM 100 MG CAP PO SCH (08:56)
[2017-05-23] MEDS: CHOLECALCIFEROL 2,000 UNIT CAP PO SCH (08:57)
[2017-05-23] MEDS: FAMOTIDINE 20 MG TAB PO SCH (08:57)
[2017-05-23] MEDS: DORZOLAMIDE/TIMOLOL 10 ML OPH BOTH EYES SCH (08:58)
--- NOTE | 2017-05-23 10:57 | DS ---
Date/Time of Note Date/Time of Note DATE: 05/23/17 TIME: 10:56 Discharge Summary Admission/Discharge Info Admit Date/Time May 16, 2017 at 14:15 Discharge Date/Time Discharge Diagnosis 1.Improved Debility 2. Left total knee replacement. 3. Hypertension. 4. Coronary artery disease. 5. COPD. 6. Improvements in self-care and mobility. Patient Condition: Good Hospital Course Patient was admitted for comprehensive interdisciplinary acute rehabilitation. Patient made steady functional gains and improved from a min/mod level to a Modified Independent level for self care and mobility, including ambulating over 150 feet with the use of a front wheeled walker. Patient is being discharged home with recommendations for home health PT and OT follow up. DME recommendations: [facility]; [facility]; Shower Chair Patient will follow up with PMD upon DC. Primary Care Provider Not On Staff Doctor CHESTER GARZA MD May 23, 2017 10:57
--- NOTE | 2017-05-23 11:54 | PN ---
DATE: 05/23/2017 SUBJECTIVE: The patient is stable. No events overnight, no fevers, chills, nausea, vomiting. OBJECTIVE: VITAL SIGNS: Blood pressure is 124/63, pulse 103, respirations 20, temperature 98.8. HEENT: Head is normocephalic. HEART: Regular rate. LUNGS: Show diminished breath sounds at the base. ABDOMEN: Soft, nontender to palpation. No rebound, guarding. EXTREMITIES: No cyanosis, edema. DERMATOLOGIC: No rashes. MUSCULOSKELETAL: No joint effusions. NEUROLOGIC: No change in exam. MEDICATIONS: Have been reviewed. LABORATORY DATA: Has been reviewed. No new labs. ASSESSMENT AND PLAN: 1. Status post left knee arthroplasty, patient currently stable. Continue physical therapy. 2. Hypertension. Continue current blood pressure regimen. 3. Glaucoma. Continue current eyedrops. 4. Chronic pain syndrome. Continue current pain regimen. 5. Benign prostatic hypertrophy. Continue Flomax. 6. Gastrointestinal and deep vein thrombosis prophylaxis. Dictated By: JUANITA FLEMING/DAO Conf#: [id number] DID#: [id number]
== END 2017-05-23 11:30 | disposition home or self-care (01) | DRG 559 ==
LOC: VRC 13:30 → UNDOADMIN 13:30 → VRC 14:15
PROVIDERS: ADMIT Physical Medicine & Rehabilitation; ATTEND Internal Medicine Nephrology
PROC: F07Z5ZZ Bed Mobility Treatment (ICD-10-PCS; principal; 2017-05-16)
PROC: F08Z2ZZ Grooming/Personal Hygiene Treatment (ICD-10-PCS; 2017-05-16)
DX: Z47.1 Aftercare following joint replacement surgery (principal); I50.33 Acute on chronic diastolic (congestive) heart failure; I25.10 Atherosclerotic heart disease of native coronary artery without angina pectoris; Z96.652 Presence of left artificial knee joint; I11.0 Hypertensive heart disease with heart failure; J44.9 Chronic obstructive pulmonary disease, unspecified; N40.0 Benign prostatic hyperplasia without lower urinary tract symptoms; H40.9 Unspecified glaucoma; G89.4 Chronic pain syndrome
CPT/HCPCS: 80053; 81001; 85025; 87081; 87086; 90686; 97110; 97112; 97116; 97150; 97163; 97165; 97530; 97535